=== PATIENT | female | born 1970 | race Caucasian/White ===

== ENCOUNTER 2017-08-16 12:24 | Emergency (ER) | payer OTHER ==
[~2017-08-16] VITALS: Ht 170.2 cm; Wt 127.5 kg
[2017-08-16 12:41] VITALS: Ht 170.2 cm; Wt 127.5 kg
[2017-08-16 13:41] VITALS: BP 140/99
== END 2017-08-16 13:41 | disposition home or self-care (01) ==
LOC: ED 12:24
DX: N39.0 Urinary tract infection, site not specified (principal); B37.3 Candidiasis of vulva and vagina; E11.9 Type 2 diabetes mellitus without complications; E78.00 Pure hypercholesterolemia, unspecified; J45.909 Unspecified asthma, uncomplicated; Z90.49 Acquired absence of other specified parts of digestive tract

== ENCOUNTER 2018-03-27 11:06 | Emergency (ER) | payer OTHER ==
[~2018-03-27] VITALS: Ht 172.7 cm; Wt 115.9 kg
[2018-03-27 11:20] VITALS: BP 150/108; Ht 172.7 cm; Wt 115.9 kg
== END 2018-03-27 14:23 | disposition home or self-care (01) ==
LOC: ED 11:06
DX: B34.9 Viral infection, unspecified (principal); J45.909 Unspecified asthma, uncomplicated; E11.9 Type 2 diabetes mellitus without complications; E78.00 Pure hypercholesterolemia, unspecified; Z90.49 Acquired absence of other specified parts of digestive tract; Z90.89 Acquired absence of other organs; Z86.39 Personal history of other endocrine, nutritional and metabolic disease
CPT/HCPCS: 82962; 87804

== ENCOUNTER 2018-09-08 13:05 | Emergency (ER) | payer OTHER ==
[~2018-09-08] VITALS: Ht 170.2 cm; Wt 116.1 kg
[2018-09-08 13:10] VITALS: Ht 170.2 cm; Wt 116.1 kg
[2018-09-08 13:51] LABS: CALCIUM 8.9 mg/dL (8.5-10.1); CHLORIDE SERUM 107 mmol/L (98-107); CREATININE SERUM 0.8 mg/dL (0.6-1.0); GFR1 > 60 mL/min; GLUCOSE SERUM 104 mg/dL (74-106); POTASSIUM SERUM 3.9 mmol/L (3.5-5.1); SODIUM SERUM 141 mmol/L (136-145)
[2018-09-08 13:56] LABS: ALKALINE PHOSPHATASE 91 U/L (46-116); ALT/SGPT 34 U/L (14-59); AST/SGOT 15 U/L (15-37); BILIRUBIN TOTAL 0.3 mg/dL (0.20-1.00); TOTAL PROTEIN, SERUM 6.9 g/dL (6.4-8.2)
[2018-09-08 14:03] LABS: BASOPHIL % 0.9 % (0-2); PLATELET COUNT 315 x10^3mcL (130-400); RED CELL DISTRIBUTION WIDTH 13.2 % (11.5-14.5)
[2018-09-08 16:28] VITALS: BP 126/79
== END 2018-09-08 16:28 | disposition home or self-care (01) ==
LOC: ED 13:05
DX: N39.0 Urinary tract infection, site not specified (principal); J45.909 Unspecified asthma, uncomplicated; I10 Essential (primary) hypertension; E11.9 Type 2 diabetes mellitus without complications; E78.00 Pure hypercholesterolemia, unspecified; E03.9 Hypothyroidism, unspecified; Z90.49 Acquired absence of other specified parts of digestive tract; Z90.89 Acquired absence of other organs
CPT/HCPCS: 36415

== ENCOUNTER 2018-12-16 12:12 | Emergency (ER) | payer OTHER ==
[~2018-12-16] VITALS: Ht 170.2 cm; Wt 117.5 kg
[2018-12-16 12:28] VITALS: BP 141/87; Ht 170.2 cm; Wt 117.5 kg
== END 2018-12-16 15:13 | disposition home or self-care (01) ==
LOC: ED 12:12
DX: H66.92 Otitis media, unspecified, left ear (principal); J45.909 Unspecified asthma, uncomplicated; I10 Essential (primary) hypertension; E11.9 Type 2 diabetes mellitus without complications; E03.9 Hypothyroidism, unspecified; E78.00 Pure hypercholesterolemia, unspecified; Z90.49 Acquired absence of other specified parts of digestive tract; Z90.89 Acquired absence of other organs; Z98.890 Other specified postprocedural states

== ENCOUNTER 2019-01-04 15:53 | Emergency (ER) | payer OTHER ==
[~2019-01-04] VITALS: Ht 172.7 cm; Wt 123.4 kg
[2019-01-04 16:00] VITALS: Ht 172.7 cm; Wt 123.4 kg
[2019-01-04 16:55] LABS: CALCIUM 7.9 mg/dL (8.5-10.1); CARBON DIOXIDE 24.9 mmol/L (21-32); CHLORIDE SERUM 107 mmol/L (98-107); CREATININE SERUM 0.7 mg/dL (0.6-1.0); GFR1 > 60 mL/min; GLUCOSE SERUM 146 mg/dL (74-106); POTASSIUM SERUM 3.6 mmol/L (3.5-5.1); SODIUM SERUM 142 mmol/L (136-145)
[2019-01-04 17:00] LABS: ALBUMIN 3.6 g/dL (3.4-5.0); ALKALINE PHOSPHATASE 78 U/L (46-116); ALT/SGPT 22 U/L (14-59); AST/SGOT 17 U/L (15-37); BILIRUBIN TOTAL 0.18 mg/dL (0.20-1.00); TOTAL PROTEIN, SERUM 6.5 g/dL (6.4-8.2)
[2019-01-04 17:02] LABS: BASOPHIL % 0.5 % (0-2); PLATELET COUNT 271 x10^3mcL (130-400); RED CELL DISTRIBUTION WIDTH 13.8 % (11.5-14.5)
[2019-01-04 17:44] VITALS: BP 127/70
== END 2019-01-04 17:44 | disposition home or self-care (01) ==
LOC: ED 15:53
PROVIDERS: Emergency Medicine
DX: R07.89 Other chest pain (principal); J45.909 Unspecified asthma, uncomplicated; I10 Essential (primary) hypertension; E11.9 Type 2 diabetes mellitus without complications; E78.00 Pure hypercholesterolemia, unspecified; Z90.49 Acquired absence of other specified parts of digestive tract; Z90.89 Acquired absence of other organs; Z86.39 Personal history of other endocrine, nutritional and metabolic disease
CPT/HCPCS: 36415; 83880; 85378; Q0092

== ENCOUNTER 2019-03-30 14:58 | Emergency (ER) | payer OTHER ==
[~2019-03-30] VITALS: Ht 170.2 cm; Wt 115.2 kg
[2019-03-30 15:13] VITALS: BP 166/65
== END 2019-03-30 17:15 | disposition home or self-care (01) ==
LOC: ED 14:58
DX: N39.0 Urinary tract infection, site not specified (principal); T20.06XA Burn of unspecified degree of forehead and cheek, initial encounter; J45.909 Unspecified asthma, uncomplicated; I10 Essential (primary) hypertension; E11.9 Type 2 diabetes mellitus without complications; E78.00 Pure hypercholesterolemia, unspecified; E03.9 Hypothyroidism, unspecified; Z90.49 Acquired absence of other specified parts of digestive tract; Z90.89 Acquired absence of other organs; Y92.89 Other specified places as the place of occurrence of the external cause